=== PATIENT | male | born 1935 | race Caucasian/White ===

== ENCOUNTER 2017-10-26 14:22 | Inpatient (IN) | payer OTHER ==
[2017-10-25 19:40] VITALS: BP 126/62
[~2017-10-26] VITALS: Ht 185.4 cm; Wt 74.8 kg
[2017-10-26 14:44] VITALS: BP 127/57
--- NOTE | 2017-10-26 15:04 | NUR ---
BEDSIDE: FACILTY STAFF AT BEDSIDE. DENIES PAIN OR DISCOMFORT.
[2017-10-26 15:14] LABS: ABG PCO2 25.7 mmHg (35.0-45.0); ABG PH 7.502 (7.350-7.450); BE(B) -1.9 mmol/L (-2.0-2.0); HCO3act 19.7 mmol/L (22.0-26.0); pO2 79.6 mmHg (75.0-100.0)
[2017-10-26 15:15] LABS: BASOPHIL % 0.4 % (0.0-0.2); EOSINOPHIL # 0.1 10^3/uL (0.0-0.2); HEMOGLOBIN 12.6 g/dL (13.9-16.3); LYMPHOCYTES % 13.9 % (24.0-44.0); MEAN CELL HGB 30.1 pg (26-34); MEAN CELL HGB CONCENTRATION 32.3 g/dL (33-37); MEAN CORP VOLUME 93.3 fL (78-100); MEAN PLATELET VOLUME 8.7 fL (7.8-11.0); MONOCYTES # 0.7 10^3/uL (0.3-0.8); MONOCYTES % 10.1 % (5.0-12.0); NEUTROPHILS % 73.3 % (41.0-85.0); RED CELL DISTRIBUTION WIDTH 13.7 % (11.5-14.5); WHITE BLOOD CELL 6.9 10^3/uL (4.5-11.0)
--- NOTE | 2017-10-26 15:26 | DIREP ---
PROCEDURE:CHEST 2 VIEWS COMPARISON:None. INDICATIONS:[facility] FINDINGS: LUNGS/PLEURA:Mild diffuse chronic interstitial fibrotic changes. No other significant pulmonary parenchymal abnormalities. No effusions. VASCULATURE:Normal. Unremarkable pulmonary vasculature. CARDIAC:Normal. No cardiac silhouette abnormality or cardiomegaly. MEDIASTINUM:Normal. No visible mass or adenopathy. BONES:Normal. No fracture or visible bony lesion. OTHER:Negative. CONCLUSION:Mild chronic interstitial fibrosis. No other evidence of active cardiopulmonary disease. Dictated by: Orion Rawls M.D. on 10/26/2017 at 03:25 PM
--- NOTE | 2017-10-26 15:38 | PCM.EKG ---
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
[2017-10-26 16:04] LABS: ALANINE AMINOTRANSFERASE(ML) 14 U/L (12-78); ALKALINE PHOSPHATASE 92 U/L (50-136); ASPARTATE AMINO TRANSFERASE 36 U/L (0-35); CALCIUM 8.7 mg/dL (8.4-10.5); CARBON DIOXIDE 27.8 mmol/L (20.0-32); GLUCOSE 95 mg/dL (70-110)
--- NOTE | 2017-10-26 17:45 | NUR ---
STRAIGHT CATH: UA OBTAINED VIA STRAIGHT CATH, USING STERILE TECHNIQUE WITHOUT DIFFICULTY.
[2017-10-26 17:54] LABS: BILIRUBIN,URINE NEGATIVE (NEGATIVE); UROBILINOGEN,URINE NORMAL (NEGATIVE)
[2017-10-26 17:59] VITALS: BP 129/64
[2017-10-26 18:01] LABS: APPEARANCE,URINE CLEAR (CLEAR); UA COLOR YELLOW (YELLOW)
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
--- NOTE | 2017-10-26 18:30 | NUR ---
DR. PALOMINO: EDP SPOKE WITH DR. PALOMINO CONCERNING ADMIT. DR. PALOMINO AGREED.
[2017-10-26] MEDS ORDERED: PRAV20TA2 PO (18:44)
[2017-10-26] MEDS ORDERED: TAMS0.4C2 PO (18:44)
[2017-10-26] MEDS ORDERED: SOLI5TAB2 PO (18:44)
[2017-10-26] MEDS ORDERED: CHOL2000 PO (18:44)
[2017-10-26] MEDS ORDERED: LEVO125T6 PO (18:44)
[2017-10-26] MEDS ORDERED: ASPI-484 PO (18:44)
[2017-10-26] MEDS ORDERED: CLOP75TA52 PO (18:44)
--- NOTE | 2017-10-26 18:49 | NUR ---
ADMIT: NOTIFIED [facility] OF ADMIT. THEY ARE IN REPORT AND WILL BE DOWN SOON TO GET HIM.
[2017-10-26 19:40] VITALS: BP 126/62
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
--- NOTE | 2017-10-26 19:40 | NUR ---
TRANSPORT: TEST EQUIPMENT MECHANIC HERE TO TRANSPORT PATIENT TO [facility].
--- NOTE | 2017-10-26 20:46 | NUR ---
TELEPHONE CALL FROM DR LAGOS HE ASKED ABOUT HOW THE PATIENT IS DOING AT THE MOMENT. NO NEW ORDERS RECEIVED. PT IS ASLEEP, VISIBLE CHEST MOVEMENT WITH AUDIBLE INSPIRATORY AND EXPIRATORY BREATHING.
[2017-10-26] MEDS: PLAVIX PO SCH (20:52)
[2017-10-26] MEDS ORDERED: PRAVACHOL PO SCH (21:00)
--- NOTE | 2017-10-26 21:29 | NUR ---
TELEPHONE ORDER RECEIVED FROM DR LAGOS RISPERIDONE 05. MG PO HS CELEXA 10 MG DAILY HALDOL 2 MG PO/IM Q6 PRN FOR AGITATION ATIVAN 0.5 PO/IM Q6 PRN FOR AGITATION RBTO
[2017-10-26] MEDS: ATIVAN PO PRN (21:41)
--- NOTE | 2017-10-26 21:45 | NUR ---
medications Patient anxious, pacing, getting up and down from bed, ativan 0.5mg given po per prn orders, RN notified
[2017-10-26] MEDS ORDERED: ATIVAN IM PRN (22:00)
[2017-10-26] MEDS ORDERED: HALDOL IM PRN (22:00)
[2017-10-27] MEDS: HALDOL PO PRN (00:40)
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
[2017-10-27] MEDS: SYNTHROID PO SCH (05:33)
[2017-10-27 09:19] VITALS: BP 156/81
[2017-10-27] MEDS: CELEXA PO SCH (09:37)
[2017-10-27] MEDS: ASPIRIN EC PO SCH (09:37)
[2017-10-27] MEDS: FLOMAX PO SCH (09:38)
[2017-10-27] MEDS: DITROPAN PO SCH ×2 (09:38→20:31)
[2017-10-27] MEDS: VITAMIN D PO SCH (09:40)
--- NOTE | 2017-10-27 10:42 | NUR ---
NOTIFIED DR. LAGOS: Notified Dr. Lagos notified [facility] medications: Xanax 0.25 mg po BID, Buspar 10 mg po TID, and Donepezil 10 mg i po HS. Order received to continue Donepezil 10 mg po HS only.
[2017-10-27] MEDS: ATIVAN PO PRN (11:00)
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
--- NOTE | 2017-10-27 12:09 | NUR ---
F/U: PT. HAS CALMED DOWN. SITTING IN DAY ROOM.
--- NOTE | 2017-10-27 18:20 | NUR ---
PIRP: P: ALTERED THOUGHT PROCESS. DTO I: Provide medications as ordered by physician. Encourage attendance and participation in all groups. Provide groups that require focus and concentration. Assist patient in differentiating between internal and external reality. Monitor patients behavior for changes that may indicate an increased risk of injury to others. R: Patient has taken all medications as ordered and has participated in some groups. Earlier in the shift he was restless getting up and down and wandering and required Ativan PRN. Since then he appears to be more calm and has been able to sit for periods of time. He was seen by Dr. Coyle via telemed and no changes were made. He has not been aggressive this shift. P: Continue current plan of care.
[2017-10-27 19:15] VITALS: BP 120/64
[2017-10-27] MEDS: PLAVIX PO SCH (20:31)
[2017-10-27] MEDS: RISPERDAL PO SCH (20:31)
[2017-10-27] MEDS: ARICEPT PO SCH (20:31)
[2017-10-27] MEDS: ZOCOR PO SCH (20:31)
--- NOTE | 2017-10-28 03:08 | NUR ---
PIRP P- ALTERED THOUGHT PROCESS AND DTO I- PROVIDE SAFE AND SUPPORTIVE ENVIRONMENT,Q 15 MIN. MONITORING,PROVIDE MEDICATION ORDERED. R- PT. WAS ORIENTED TO NAME. DENIES DEPRESSION AND ANXIETY. WAS IN DAY ROOM FOLLOWING SHIFT REPORT. PT. WENT TO BR AND STATED HE WAS GOING TO GO TO BED. HE DID NOT ATTEND GROUP. TOOK MEDICATION ORDERED. IS RESTING IN BED WITH EYES CLOSED AT THIS TIME.DID NOT EXHIBIT DTO THIS SHIFT. P- WILL CONTINUE WITH CURRENT TX. PLAN.
[2017-10-28] MEDS: SYNTHROID PO SCH (05:54)
[2017-10-28] MEDS: DITROPAN PO SCH ×2 (09:43→20:25)
[2017-10-28] MEDS: ASPIRIN EC PO SCH (09:43)
[2017-10-28] MEDS: CELEXA PO SCH (09:43)
[2017-10-28] MEDS: FLOMAX PO SCH (09:43)
[2017-10-28] MEDS: VITAMIN D PO SCH (09:44)
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
[2017-10-28 13:08] VITALS: BP 120/66
--- NOTE | 2017-10-28 13:16 | NUR ---
BIOPSYCHOSOCIAL: SS UNABLE TO COMPLETE EXAM AT THIS TIME. PT VERY RESTLESS AND UNABLE TO COGNITIVELY PARTICIPATE AT THIS TIME. SS WILL REATTEMPT WHEN PT IS MORE ALERT AND ABLE TO PARTICIPATE. Addendum: 10/28/17 at 1321 by Cheyanne VILLARREAL CM Amended: Links added. Addendum: 11/11/17 at 1253 by Cheyanne VILLARREAL CM SS REATTEMPTED TO COMPLETE EVAL BUT PT STILL REMAINS COGNITIVELY UNABLE TO PARTICIPATE
--- NOTE | 2017-10-28 13:17 | NUR ---
GMAS SCORE 0: PT WAS UNABLE TO COGNITIVELY PARTICIPATE AT THIS TIME. SS WAS NOT ABLE TO ASSESS. WILL REATTEMPT ONCE PT IS NOT RESTLESS AND ABLE TO SIT DOWN AND PARTICIPATE IN EXAM. Addendum: 10/28/17 at 1321 by Cheyanne VILLARREAL CM Amended: Links added. Addendum: 11/11/17 at 1253 by Cheyanne VILLARREAL CM SS REATTEMPTED TO COMPLETE EVAL BUT PT STILL REMAINS COGNITIVELY UNABLE TO PARTICIPATE
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
--- NOTE | 2017-10-28 18:07 | NUR ---
PIRP: P: DTO,DEMENTIA WITH BEHAVIORAL DISTURBANCE,ALTERED THOUGHT PROCESS, RISK FOR FALLS I: MONITOR Q 15 MINUTES FOR SAFETY, PROVIDE MEDICATIONS ORDERED, GIVE CLEAR AND SIMPLE INSTRUCTIONS, PROVIDER REALITY ORIENTATION NEEDED,PROVIDE YELLOW NON SKID SOCKS, ENCOURAGE GROUPS, ATTENDANCE AND PARTICIPATION R: Q 15 MINUTE CHECKS HAS BEEN DONE,, PT. HAS TAKEN MEDICATIONS ORDERED BY PHYSICIAN, PT. HAS BEEN ABLE TO FOLLOW CLEAR AND SIMPLE INSTRUCTIONS. PT. IS ORIENTED TO NAME ONLY, PT. IS WEARING YELLOW NON SKID SOCKS. PT. HAS REFUSED TO ATTEND GROUPS TODAY. PT. HAS BEEN CALM AND COOPERATIVE AND HAS NOT SHOWN ANY AGGRESSION. PT. ENCOURAGE TO COME TO DAY ROOM BUT PT. HAS WANTED TO STAY IN ROOM AND SLEEP. P: CONTINUE CURRENT TX PLAN
[2017-10-28 19:45] VITALS: BP 135/64
[2017-10-28] MEDS: ZOCOR PO SCH (20:25)
[2017-10-28] MEDS: ARICEPT PO SCH (20:25)
[2017-10-28] MEDS: RISPERDAL PO SCH (20:25)
[2017-10-28] MEDS: PLAVIX PO SCH (20:25)
--- NOTE | 2017-10-28 20:43 | CNH ---
DATE OF CONSULTATION: CONSULT/HISTORY AND PHYSICAL REFERRING PHYSICIAN: Dr. Coyle. REASON FOR CONSULTATION: Medical management of multiple medical problems. HISTORY OF PRESENT ILLNESS: The patient is an 82-year-old man with a past medical history significant for coronary artery disease, hyperlipidemia, hypertension, dementia, likely vascular dementia, history of arrhythmia in the past, who was admitted to the [facility] unit due to reports of being disoriented, confused, combative and agitated. He is a resident of [facility]. He is alert and cooperative with the exam, but very confused and history is very much limited. He was seen in the Emergency Room and noted to have elevated creatinine of 1.5 with an unknown baseline. Clinically, he was stable. There were no acute medical problems noted. He denied any pain or nausea. He denied any recent falls. PAST MEDICAL HISTORY: Includes coronary artery disease, history of cardiac arrhythmia, hyperlipidemia, hypertension and vascular dementia. He has a history of hypothyroidism and BPH. PAST SURGICAL HISTORY: Unknown. ALLERGIES: ALLERGIC TO NSAIDS REPORTEDLY. HOME MEDICATIONS: List entered into the system after he arrived to the [facility] unit, include aspirin 81 mg daily, vitamin D daily, Plavix 75 mg daily, levothyroxine 125 mcg daily, pravastatin 20 mg daily, VESIcare 5 mg daily and tamsulosin 0.4 mg daily. SOCIAL HISTORY: Lives in a [facility]. No recent alcohol, tobacco or illicit drug use history. FAMILY HISTORY: Negative for early coronary artery disease or diabetes. REVIEW OF SYSTEMS: Limited. CARDIAC: Denies chest pain or shortness of breath. PULMONARY: No cough, sputum production or pleuritic chest pain. GASTROINTESTINAL: No nausea, vomiting, diarrhea or constipation. All else negative in 10 point review of system except as in HPI. PHYSICAL EXAMINATION: VITAL SIGNS: Upon arrival, height 185.4 cm, weight 76.2 kilograms. Temperature 97.6, pulse of 57, respiratory rate 16, blood pressure is 127/57, O2 saturation 96% on room air. GENERAL: He is alert and oriented x 1 at time of exam. No acute distress. HEENT: His pupils are equal, round and reactive. Sclerae are anicteric. Oropharynx, visualized portions clear. Mucous membranes are moist. NECK: Supple, no lymphadenopathy. CARDIOVASCULAR: At time of exam was slightly irregular with rate in the 60s. LUNGS: Clear bilaterally. No wheezing. ABDOMEN: Soft. Bowel sounds are present, nontender to palpation. EXTREMITIES: No cyanosis, clubbing or significant edema. NEUROLOGIC: Grossly nonfocal. INITIAL LABORATORY DATA: CBC: White count 6.9, hemoglobin 12.6 and platelets 291. Differential: 73% neutrophils, 14% lymphocytes, 10% monocytes. Sodium 141, potassium is 4.3, chloride 108, CO2 is 28, BUN 22, creatinine 1.5, glucose is 95, calcium is 8.7, total bilirubin 0.3, AST 36, ALT is 14, alkaline phosphatase 92, total CK 41, CK-MB 0.7, and troponin I is less than 0.02, C-reactive protein 0.27, proBNP 607, total protein 6.1, albumin 2.2, vitamin B12 386, folate of 14, PT of 9.9, PTT 25.1. UA, pH is 6.5, specific gravity is 1.015, all else is negative. Drug screen is only positive for benzodiazepines. ASSESSMENT AND PLAN: The patient is an 82-year-old man here with hypertension, hyperlipidemia, coronary artery disease, hypothyroidism, BPH with some renal failure, likely chronic kidney disease stage 3, anemia due to chronic disease. 1. We will continue his current cardiovascular medications. 2. Encourage oral fluid hydration. 3. Continue his thyroid at current dose. He is clinically euthyroid. Time spent on 10/27/2017 is 45 minutes. Thank you very much for this consult. We will follow with you. Jordon Ascencio MD DR: IRISH/princess JOB# [id number]
[2017-10-29] MEDS: SYNTHROID PO SCH (06:16)
--- NOTE | 2017-10-29 06:26 | NUR ---
PIRP: P: ALTERED THOUGHT PROCESS. DTO I: Provide medications as ordered by physician. Encourage attendance and participation in all groups. Provide groups that require focus and concentration. Assist patient in differentiating between internal and external reality. Monitor patients behavior for changes that may indicate an increased risk of injury to others. R: Patient has taken all medications as ordered. Did not participate in group but came down for snack. He only slept a few hours and said he had slept all day. He has not been aggressive this shift. P: Continue current plan of care.
[2017-10-29] MEDS: ASPIRIN EC PO SCH (09:22)
[2017-10-29] MEDS: CELEXA PO SCH (09:22)
[2017-10-29] MEDS: VITAMIN D PO SCH (09:22)
[2017-10-29] MEDS: PLAVIX PO SCH (09:22)
[2017-10-29] MEDS: FLOMAX PO SCH (09:22)
[2017-10-29] MEDS: DITROPAN PO SCH ×2 (09:23→20:40)
[2017-10-29 10:12] VITALS: BP 103/51
--- NOTE | 2017-10-29 16:59 | NUR ---
PIRP: P: DTO, DEMENTIA WITH BEHAVIORAL DISTURBANCE,RISK FOR FALLS, SLEEP PATTERN DISTURBANCE I: Q 15 MINUTE CHECKS, PROVIDE MEDICATION ORDERED, GIVE CLEAR AND SIMPLE INSTRUCTIONS, PROVIDE REALITY ORIENTATION, PROVIDE NON SKID SOCKS,PROVIDE QUIET ENVIRONMENT R: Q 15 MINUTE CHECKS DONE, PT. TOOK MEDS PRESCRIBED, PT. ABLE TO FOLLOW INSTRUCTIONS, PT. ORIENTED TO NAME ONLY, PT WEARING YELLOW NON SKID SOCKS, PT. SLEPT 3.5 HOURS LAST NIGHT. PT. HAS NOT BEEN AGGRESSIVE. PT HAS BEEN CALM AND COOPERATIVE. PT. WANTS TO STAY IN BED DURING THE DAY. HAVE ATTEMPTED TO KEEP HIM UP. P: CONTINUE CURRENT TX PLAN
[2017-10-29 19:43] VITALS: BP 134/72
[2017-10-29] MEDS: RISPERDAL PO SCH (20:39)
[2017-10-29] MEDS: ZOCOR PO SCH (20:40)
[2017-10-29] MEDS: ARICEPT PO SCH (20:40)
[2017-10-29] MEDS: ATIVAN PO PRN (22:08)
--- NOTE | 2017-10-29 22:18 | NUR ---
Agitation pt is becoming more and more anxious and agitated stated that he is going home tomorrow and cont to comes to desk wanting to get some scissors pt is becoming difficult to redirect, when nurses goes in pt's room pt becomes upset and wants to know why nurses are in his room explain to pt that we are just making rounds pt given Ativan 0.5mg po at this time will cont to monitor pt.s behavior.
--- NOTE | 2017-10-30 05:17 | NUR ---
PIRP- P-ALTERED THOUGHT PROCESS AND DTO I- PROVIDE MEDICATION ORDERED,Q 15 .MIN. MONITORING,PROVIDE SAFE AND SUPPORTIVE ENVIRONMENT. R- PT. WAS ORIENTED TO NAME AND YEAR NOT MONTH. DENIES DEPRESSION AND ANXIETY. DECLINED TO ATTEND GROUP OR EAT A SNACK AND WENT TO BED. TOOK MEDICATION ORDERED. EXHIBITED ANXIETY PREVIOUS NOTE STATES. P-WILL CONTINUE WITH CURRENT TX. PLAN.
[2017-10-30] MEDS: SYNTHROID PO SCH (05:58)
[2017-10-30 07:58] VITALS: BP 134/74
[2017-10-30] MEDS: VITAMIN D PO SCH (11:01)
[2017-10-30] MEDS: DITROPAN PO SCH ×2 (11:01→20:27)
[2017-10-30] MEDS: FLOMAX PO SCH (11:01)
[2017-10-30] MEDS: ASPIRIN EC PO SCH (11:01)
[2017-10-30] MEDS: CELEXA PO SCH (11:01)
[2017-10-30] MEDS: PLAVIX PO SCH (11:01)
--- NOTE | 2017-10-30 17:08 | NUR ---
PIRP: P: ALTERED MENTAL STATUS. DTO I: Provide medications as ordered by physician. Encourage attendance and participation of all groups. Provide groups that require focus and concentration. Assist patient in differentiating between internal and external reality. Monitor patient behaviors for changes that may indicate risk of injury to others. R: Patient has taken all medications as ordered and has participated in groups for short periods of time. He continues to wander and have restless behavior and is a High Fall Risk. He has not hallucinated. He is confused and disoriented but has not been combative. He allowed personal care, shower and did not resist. He has not required any PRN medications. Dr. Coyle saw him today and made medication changes increased Risperidone 0.5 mg po BID. P: Continue current plan of care.and monitor effectiveness of medication changes.
[2017-10-30 19:30] VITALS: BP 148/72
[2017-10-30] MEDS: ARICEPT PO SCH (20:27)
[2017-10-30] MEDS: RISPERDAL PO SCH (20:27)
[2017-10-30] MEDS: ZOCOR PO SCH (20:27)
--- NOTE | 2017-10-31 06:21 | NUR ---
PIRP P- ALTERED THOUGHT PROCESS AND DTO I- PROVIDE MEDICATION ORDERED,Q 15 MIN. MONITORING,PROVIDE SAFE AND SUPPORTIVE ENVIRONMENT.PROVIDE 1;1 INTERVENTION ALLOWING PT. TO EXPRESS THOUGHTS AND FEELINGS. R-PT. ORIENTED TO MONTH AND NAME NOT YEAR. DENIES DEPRESSION AND ANXIETY. ATTENDED GROUP AND PARTICIPATED EXERCISES AND ATE SNACKS. PT. EXHIBITED CONFUSION. TOOK MEDICATION ORDERED. DID NOT EXHIBIT DTO THIS SHIFT. RESTED IN BED WITH EYES CLOSED 5.25 HOURS THIS SHIFT. PT. STATED HE WAS NOT IN THE HOSPITAL AND WAS REMINDED WHERE HE IS. P- WILL CONTINUE WITH CURRENT TX. PLAN.
[2017-10-31] MEDS: SYNTHROID PO SCH (06:26)
[2017-10-31 07:56] VITALS: BP 152/75
[2017-10-31 08:05] VITALS: BP 121/56
[2017-10-31] MEDS: DITROPAN PO SCH ×2 (08:10→20:22)
[2017-10-31] MEDS: CELEXA PO SCH (08:11)
[2017-10-31] MEDS: FLOMAX PO SCH (08:11)
[2017-10-31] MEDS: ASPIRIN EC PO SCH (08:11)
[2017-10-31] MEDS: VITAMIN D PO SCH (08:11)
[2017-10-31] MEDS: RISPERDAL PO SCH ×2 (08:11→20:22)
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
--- NOTE | 2017-10-31 16:38 | NUR ---
PIRP: P: DTO, DEMENTIA WITH BEHAVIORAL DISTURBANCE,RISK FOR FALLS, SLEEP PATTERN DISTURBANCE I: Q 15 MINUTE CHECKS, PROVIDE MEDICATION ORDERED, GIVE CLEAR AND SIMPLE INSTRUCTIONS, PROVIDE REALITY ORIENTATION, PROVIDE NON SKID SOCKS,PROVIDE QUIET ENVIRONMENT R: Q 15 MINUTE CHECKS DONE, PT. TOOK MEDS PRESCRIBED, PT. ABLE TO FOLLOW INSTRUCTIONS, PT. ORIENTED TO NAME ONLY, PT WEARING HIS SHOES WITH NO SKID SOCKS, PT. SLEPT 5.25 HOURS LAST NIGHT. PT. HAS NOT BEEN AGGRESSIVE. PT HAS BEEN CALM AND COOPERATIVE. PT. DID PLAY VIVIANA WITH STAFF AND PEERS TODAY. LAID DOWN FOR ONLY A SHORT TIME TO REST HIS BACK HIS SAID. P: CONTINUE CURRENT TX PLAN
--- NOTE | 2017-10-31 17:02 | NUR ---
FAMILY CONTACT: CHERELLE CALLED SONASUNCION TO INFORM OF THE TREATMENT TEAM MEETING. SON STATES THAT HE HAS TO WORK TOMORROW AND NEXT MONDAY BUT WOULD LIKE FOR US TO CONFERENCE HIS SISTER IN. CHERELLE CONTACTED GARTH AT [phone] WHO INFORMED THIS WORKER SHE WOULD BE HAPPY TO GET A CALL TO BE INVOLVED IN TX TEAM. CHERELLE INFORMED DAUGHTER SHE WOULD RECEIVE A CALL BETWEEN [phone]. Addendum: 10/31/17 at 1730 by LUCHO Tolentino PLEASE NOTE, DAUGHTER NOELLE IS [facility], PRIMARY CONTACT FOR THIS PT. [phone].
--- NOTE | 2017-10-31 17:27 | NUR ---
BIOPSYCHOSOCIAL: COMPLETED WITH THE HELP OF HIS DAUGHTER. Addendum: 10/31/17 at 1728 by LUCHO Tolentino Amended: Links added. Addendum: 10/31/17 at 1730 by LUCHO Tolentino DAUGHTER GARTH IS [facility], PRIMARY CONTACT
[2017-10-31 19:39] VITALS: BP 127/59
[2017-10-31] MEDS: ARICEPT PO SCH (20:22)
[2017-10-31] MEDS: PLAVIX PO SCH (20:22)
[2017-10-31] MEDS: ZOCOR PO SCH (20:22)
--- NOTE | 2017-11-01 05:04 | NUR ---
PIRP P- ALTERED THOUGHT PROCESS AND DTO I- PROVIDE MEDICATION ORDERED,Q 15 MIN. MONITORING, PROVIDE 1:1 INTERVENTION ALLOWING PT. TO EXPRESS THOUGHTS AND FEELINGS. R- ORIENTED TO NAME NOT MONTH OR YEAR. DENIES DEPRESSION AND ANXIETY. ATTENDED GROUP AND PARTICIPATED IN GROUP ACTIVITY. ATE SNACKS. PLEASANT AFFECT . DID NOT EXHIBIT DTO. TOOK MEDICATION ORDERED. HAS RESTED IN BED WITH EYES CLOSED FOR 5 HOURS OF THIS TIME. P- WILL CONTINUE WITH CURRENT TX. PLAN.
[2017-11-01] MEDS: SYNTHROID PO SCH (06:27)
[2017-11-01 07:28] VITALS: BP 122/65
[2017-11-01] MEDS: RISPERDAL PO SCH ×2 (08:54→20:33)
[2017-11-01] MEDS: ASPIRIN EC PO SCH (08:54)
[2017-11-01] MEDS: FLOMAX PO SCH (08:54)
[2017-11-01] MEDS: DITROPAN PO SCH ×2 (08:54→20:33)
[2017-11-01] MEDS: CELEXA PO SCH (08:54)
[2017-11-01] MEDS: VITAMIN D PO SCH (08:54)
--- NOTE | 2017-11-01 09:25 | NUR ---
Tx team Pt was seen by Dr. Coyle and tx team, no new orders received @ this time.
--- NOTE | 2017-11-01 17:18 | NUR ---
PIRP P: Confusion, withdrawn, irritable I: Q15 min monitoring, provide safe and supportive environment, give clear and simple instructions, redirect with verbalization, assess for psychotic symptoms, monitor changes in usual behavior, give medications as ordered, teach relaxation techniques, re-orient to surroundings as needed, provide task-oriented activities, encourage participation in own self-care R: Pt has had withdrawn, but pleasant affect majority of shift, irritable @ times. Participates in some group activities with prompting, is withdrawn majority of time. Interacts appropriately with staff when approached. Alert and oriented to self. Denies depression, anxiety, SI/HI. No combative or threatening behaviors exhibited @ this time, no psychotic symptoms observed. Takes medications as ordered, will perform ADLs with minimal assist and prompting. P: Pt unable to voice plan, no new orders received @ this time.
[2017-11-01 19:20] VITALS: BP 106/46
[2017-11-01] MEDS: PLAVIX PO SCH (20:33)
[2017-11-01] MEDS: ARICEPT PO SCH (20:33)
[2017-11-01] MEDS: ZOCOR PO SCH (20:33)
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
--- NOTE | 2017-11-02 04:26 | NUR ---
MANAS P DTO. Dementia with behaviors. Altered thought process. Sleep pattern disturbance. I Patient to remain med compliant. Stress ways to cope with anger and stress. Allow patient to verbalize thoughts and feelings. Monitor every 15 min. Patient to sleep for 7-8 hours. Encourage group participation. R Patient has maintained med compliance. Patient has not displayed any anger or stress. Patient verbalized hunger when he approached the nurse desk and asked for a snack. Patient has been monitored every 15 min and has slept 4 hours. Patient refused to attend group. P Continue plan of care.
[2017-11-02 07:30] VITALS: BP 158/82
[2017-11-02] MEDS: SYNTHROID PO SCH (08:12)
[2017-11-02] MEDS: CELEXA PO SCH (09:09)
[2017-11-02] MEDS: DITROPAN PO SCH ×2 (09:09→20:23)
[2017-11-02] MEDS: FLOMAX PO SCH (09:09)
[2017-11-02] MEDS: ASPIRIN EC PO SCH (09:10)
[2017-11-02] MEDS: VITAMIN D PO SCH (09:10)
[2017-11-02] MEDS: RISPERDAL PO SCH ×2 (09:13→20:23)
--- NOTE | 2017-11-02 17:48 | NUR ---
PIRP P WITHDRAWN, ISOLATES, IRRITABLE, CONFUSED I PROVIDE A SAFE AND SUPPORTIVE ENVIRONMENT, Q15 MINUTE MONITORING, ADMINISTER MEDICATIONS ORDERED, PROVIDE INTERACTIVE GROUP ACTIVITIES, VERBAL REDIRECTION, ENCOURAGE PARTICIPATION IN OWN SELF CARE, REORIENT TO SURROUNDINGS NEEDED, TEACH IMPORTANCE IN ALTERATION IN REST AND ACTIVITY, ENCOURAGE PO FOOD AND FLUID INTAKE R PT HAS ISOLATED TO ROOM MAJORITY OF SHIFT, IRRITABLE AT TIMES, HAS PARTICIPATED IN SOME GROUP ACTIVITIES WITH PROMPTING, TAKES MEDICATIONS ORDERED, HAS NOT EXHIBITED THREATENING OR COMBATIVE BEHAVIORS, MAINTAINS APPROPRIATE BOUNDARIES WITH STAFF AND PEERS, REFUSED TO HAVE BREAKFAST AND MORNING SNACK, BUT DID HAVE LUNCH AND EVENING SNACK, COOPERATIVE WITH ADL'S P PT DOES NOT VOICE PLAN
[2017-11-02 19:50] VITALS: BP 119/61
[2017-11-02] MEDS: ZOCOR PO SCH (20:23)
[2017-11-02] MEDS: ARICEPT PO SCH (20:23)
[2017-11-02] MEDS: PLAVIX PO SCH (20:28)
--- NOTE | 2017-11-03 04:56 | NUR ---
PIRP P-WITHDRAWN, CONFUSED I-GIVE MEDICATIONS PRESCRIBED, ENCOURAGE GROUP PARTICIPATION. PROVIDE SUPPORTIVE ENVIRONMENT. RE-ORIENT WHEN NECESSARY. Q 15 MIN MONITORING. R-PT ATTEMPTED SEVERAL TIMES TO GO TO ROOM AT BEGINNING OF SHIFT. ENCOURAGED TO COME OUT OF ROOM TO DAY ROOM FOR SNACK AND PARTICIPATION IN GROUP. PT REFUSED GROUP, AND WAS CONFUSED, TAPPED ON NURSES STATING PLEXI GLASS SEVERAL TIMES ASKING WHAT HE IS SUPPOSED TO BE DOING, EVEN AFTER RE-DIRECTION. PT GOT UP SEVERAL TIMES DURING THE NIGHT TO WANDER OUT INTO THE [place]. PT TALKING IN SENTENCES THAT DID NOT MAKE SENSE. P-CONTINUE WITH PLAN OF CARE.
[2017-11-03] MEDS: SYNTHROID PO SCH (05:58)
[2017-11-03 07:16] VITALS: BP 155/71
[2017-11-03] MEDS: PLAVIX PO SCH (09:03)
[2017-11-03] MEDS: DITROPAN PO SCH ×2 (09:03→20:30)
[2017-11-03] MEDS: CELEXA PO SCH (09:03)
[2017-11-03] MEDS: RISPERDAL PO SCH ×2 (09:03→20:30)
[2017-11-03] MEDS: VITAMIN D PO SCH (09:03)
[2017-11-03] MEDS: ASPIRIN EC PO SCH (09:03)
[2017-11-03] MEDS: FLOMAX PO SCH (09:03)
[2017-11-03] MEDS: HALDOL PO PRN (12:24)
--- NOTE | 2017-11-03 12:24 | NUR ---
BEHAVIOR NOTE: Patient was wandering hallway delusional behavior stating "I'm late for work". Patient was unable to be redirected and continued to try and get in to the nurse's station stating "They called me and I have to be there by %". Addendum: 11/03/17 at 1326 by EB Uriostegui RN by 5. Haldol 2 mg po PRN given for mentioned behaviors.
--- NOTE | 2017-11-03 13:46 | NUR ---
PIRP: P: ALTERED MENTAL STATUS I: Provide medications as ordered by physiciian. Encourage attendance and participation of all groups. Provide groups that require focus and concentration. Assist patient in differentiating between internal and external reality. R: Patient has taken all medications as ordered and has remained most ofthe day in his room. He has required PRN medication for delusions stating "I need to go to work". wandering hallway and unable to redirect. He has not been combative or aggressive. P: Continue current plan of care.
--- NOTE | 2017-11-03 14:03 | NUR ---
reassessment of behavior pt lying in bed refuses to come to day room and participate in group activities. no distress noted
[2017-11-03 19:50] VITALS: BP 113/61
[2017-11-03] MEDS: ZOCOR PO SCH (20:30)
[2017-11-03] MEDS: ARICEPT PO SCH (20:30)
--- NOTE | 2017-11-04 05:30 | NUR ---
PIRP P-DEMENTIA WITH BEHAVIORS, ALTERED THOUGHT PROCESS, SLEEP PATTERN DISTURBANCE I- Q15 MINUTE MONITORING, ADMINISTER MEDICATIONS ORDERED, RE- DIRECT AND RE-ORIENT NEEDED, PROVIDE SAFE AND SUPPORTIVE ENVIRONMENT, ENCOURAGE ADEQUATE SLEEP AND PARTICIPATION IN GROUP ACTIVITIES. R-PT DENIED ANY PAIN, FEELING OF ANXIETY OR DEPRESSION. PT IS UNWILLING TO PARTICIPATE IN GROUPS AND IS CONFUSED ABOUT WHERE HE IS. PT CONTINUES TO ASK MED THE SAME QUESTION ASKED OF HIM INSTEAD OF RESPONDING APPROPRIATELY. PT TOOK ALL MED ADMINISTERED. PT LEFT DAY ROOM TO GO TO BED EARLY AFTER ASKING ABOUT AVAILABLE SNACKS AND THEN DECLINING WHEN OFFERED. PT ATTEMPTED TO GET UP AROUND 4AM AND WAS INFORMED IT IS STILL TOO EARLY TO GET UP. PT WENT BACK TO BED. P-CONTINUE WITH PLAN OF CARE.
[2017-11-04] MEDS: SYNTHROID PO SCH (05:50)
[2017-11-04 07:25] VITALS: BP 146/75
[2017-11-04] MEDS: CELEXA PO SCH (08:07)
[2017-11-04] MEDS: FLOMAX PO SCH (08:07)
[2017-11-04] MEDS: ASPIRIN EC PO SCH (08:07)
[2017-11-04] MEDS: RISPERDAL PO SCH ×2 (08:07→20:20)
[2017-11-04] MEDS: DITROPAN PO SCH ×2 (08:07→20:21)
[2017-11-04] MEDS: VITAMIN D PO SCH (08:08)
--- NOTE | 2017-11-04 09:31 | NUR ---
BEHAVIOR NOTE: Patient became agitated yelling out "The floor is not wet!". towards staff when they were asking him to remain seated while housekeeping was mopping the floor. He disregarded what he had been asked and got up with unsteady gait walking across floor and then down to his room and got in to bed.
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
--- NOTE | 2017-11-04 16:15 | NUR ---
PIRP: P: ALTERED THOUGHT PROCESS. DTO I: Provide medications as ordered by physician. Encourage attendance and participation of all groups and provide groups that require focus and concentration. Assist patient in differentiating between internal and external reality. Monitor patient changes in usual behavior that may indicate risk of injury to others. R: Patient has taken all medications as ordered and has not participated in any socializing. He has remained in his room most of day and rested but has been encouraged on multiple times to come and sit and socialize in day room. He is easily agitated and remains confused and disoriented. P: Continue current plan of care.
[2017-11-04 19:36] VITALS: BP 118/68
[2017-11-04] MEDS: PLAVIX PO SCH (20:20)
[2017-11-04] MEDS: ARICEPT PO SCH (20:20)
[2017-11-04] MEDS: ZOCOR PO SCH (20:21)
--- NOTE | 2017-11-05 05:41 | NUR ---
PIRP P Danger to others, Dementia with behaviors, Altered thought process, risk for falls, Sleep pattern disturbance I Medication compliance to be continued, Monitor for threatening behavior and stop it, Monitor patient for safety every 15 minutes, Observe for unusual behavior and de escalate threatening behavior. Encourage patient to get good nights sleep, Encourage patient to verbalize thoughts and feelings. Monitor patient for his personal safety due to unsteady gait. Encourage non slip shoes. Medications per Drs orders. R Patient has been medication compliant. Patient has not displayed any threatening behavior. Frequent checks on patient as he gets up frequently at night to go to bathroom and also to walk to nurses desk. Patient has not displayed any threatening behavior. Nurses have walked patient back to his room from desk and to day room as patient wanted container of juice. Patient encouraged to talk .Non slip shoes worn when up in hallway. Medications have been given as per Drs orders. P Continue plan of care.
[2017-11-05] MEDS: SYNTHROID PO SCH (05:48)
[2017-11-05] MEDS: VITAMIN D PO SCH (07:40)
[2017-11-05] MEDS: CELEXA PO SCH (07:40)
[2017-11-05] MEDS: HALDOL PO PRN (07:40)
[2017-11-05] MEDS: ASPIRIN EC PO SCH (07:40)
[2017-11-05] MEDS: DITROPAN PO SCH ×2 (07:40→20:33)
[2017-11-05] MEDS: RISPERDAL PO SCH ×2 (07:40→20:34)
[2017-11-05] MEDS: FLOMAX PO SCH (07:40)
[2017-11-05] MEDS: PLAVIX PO SCH (07:40)
--- NOTE | 2017-11-05 09:15 | NUR ---
BEHAVIOR NOTE: Patient yelling at staff " I want to know where the bankers breakfast is!" Refusing breakfast and delusional/agitation. Unable to redirect or assist patient d/t aggressive/agitated behavior. Haldol 2 mg po given for behaviors.
[2017-11-05 09:47] VITALS: BP 131/62
--- NOTE | 2017-11-05 10:17 | PRM.PN ---
Mood: UP AND DOWN, EXIT SEEKING BEHAVIOR Sleep: SLEEPING OK AT NIGHT, NORMALLY SLEEPS WELL AT NIGHT Appetite: NORMAL APPETITE Suidical thoughts: NONE REPORTED Homicidal thoughts: NONE REPORTED Recent stressors: STRESS OF MENTAL ILLNESS Family support: DAUGHTER AND SON Aggressive Behavior: SOME AGGRESSIVE BEHAVIOR, REQUIRED PRN MEDICATION THIS AM Ability to Perform ADL'sc: NEEDS ASSISTANCE, NEEDS PROMPTING Psychotic sympstoms: DELUSIONAL, PARANOID, ODD THINKING Manic Symptoms: NONE REPORTED Living situation: LIVES AT [facility] Illicit Drug usec: NONE REPORTED Alcoholo use: NONE REPORTED Tobacco use: NONE REPORTED Anxity Symptoms: MODERATE ANXIETY LEVEL Anger/Irritablility: PROBLEMS WITH ANGER AND IRRITABILITY Muscle Strength & Tone: WNL Gait & Station: Ataxic Appearance: Well groomed/hygience, Casual attire, Normal weight, Appears age stated Attitude & Behaviour: Uncooperative, Poor eye contact, Psychomotor agitation Mood & Affect: Euthymic/appr/congruent, Iabile, Angry, Depressed Orientation: Disoriented to place, Disoriented to time, Disoriented to situation Attention/Concentration: Poor attention, Poor concentration Speech: Reg rate/vol/rhyth/prosod Judgement/Insight: Poor judgement, Poor insight Thought Process: Linear/goal directed, Loose, Tangential Language: Moldovan Thought content/Abnormal/Psych: Delusions Fund of Knowledge: Other Associations: WILMER Memory (recent and remote): Recent memory repaired, Remote memory repaired Constitutional: Insomnia Neurological: None Psychiatric: Depressed, Anxious, Psychosis [place] I: DELUSIONAL DISORDER, DEMENTIA WITH BEHAVIOR PROBLEMS, DEPRESSION, ANXIETY [place] II: DEFERRED [place] III: REFER TO PMH/MEDICAL CHART [place] IV: STRESS OF MENTAL ILLNESS [place] V: GAF=25 Assessment/Plan Assessment/Plan Assessment/Plan THE PATIENT WAS SEEN VIA TELEMEDICINE EQUIPMENT (VSEE) ALONG WITH THE TREATMENT TEAM. THE PATIENT'S VITAL SIGNS WERE: WO=377/62, PULSE=59, RESP.=16, TEMP.=98.5 , O2 SAT WAS 95% ON RA. THE PATIENT SLEPT 4.5 HOURS LAST NIGHT. THE PATIENT SLEPT 7 HOURS THE NIGHT BEFORE. THE PATIENT NORMALLY SLEEPS WELL PER STAFF. THE PATIENT NEVER EATS BREAKFAST. THE PATIENT EATS 50-70% OF OTHER MEALS. THE PATIENT HAS BEEN IRRITABLE PER STAFF. THE PATIENT REQUIRED PRN HALDOL ON MONDAY. THE PATIENT HAS SHOWN SONE AGGRESSIVE BEHAVIOR TOWARDS STAFF. THE PATIENT IS CONFUSED. THE PATIENT HAS ODD AND DELUSIONAL THINKING. THE PATIENT REQUIRED HALDOL 2MG PO PRN THIS MORNING. THE PATIENT HAS EXIT SEEKING BEHAVIOR. THE PATIENT WANTED TO GO TO THE "BANKER[employer] BREAKFAST." THE PATIENT IS DISORIENTED TO PLACE, TIME, AND SITUATION. THE PATIENT TAKES HIS MEDICATIONS. THE PATIENT CAME FROM [place]. ASSESSMENT: DELUSIONAL DISORDER, PSYCHOSIS, MAJOR DEPRESSIVE DISORDER, GENERALIZED ANXIETY DISORDER, DEMENTIA WITH BEHAVIOR PROBLEMS PLAN: 1) CONTINUE BEHAVIORAL HEALTH MANAGEMENT. 2) INCREASE RISPERDAL TO 0.75MG PO BID. CONTINUE OTHER MEDICATIONS AT CURRENT DOSES. SUPPORTIVE THERAPY GIVEN. THE PATIENT DENIES SI OR HI. SAFETY PLANS WERE DISCUSSED. Problems: (1) Dementia with aggressive behavior Status: Acute ICD Code: F03.91 - Unspecified dementia with behavioral disturbance SNOMED: [id number], [id number] PUJA LORENZO IV, MD November 05, 2017 10:17
--- NOTE | 2017-11-05 16:04 | NUR ---
PIRP: P: ALTERED MENTAL STATUS. I: Provide medications as ordered bt physician. Encourage attendance and participation of all groups. Assist patient in differentiating between internal and external reality. R: Patient has taken all medications but continues to retreat back to his room to sleep. He remains confused and disoriented. He has been up for meals and a few hours today. P: Continue current plan of care.
[2017-11-05 19:33] VITALS: BP 135/74
[2017-11-05] MEDS: ARICEPT PO SCH (20:32)
[2017-11-05] MEDS: ZOCOR PO SCH (20:34)
--- NOTE | 2017-11-06 04:29 | NUR ---
PIRP P Danger to Others, Dementia with behaviors, Altered thought process, Risk for falls, Sleep pattern disturbance I Monitor for medication compliance, Observe for aggressive behaviors and attempt to decrease them if occurs. Observe patient every 15 minutes and more often if needed to maintain safety as patient is sometimes unsteady standing and walking. Encourage patient to verbalize thoughts and feelings. Encourage patient to get 7 hours of sleep nightly. Encourage patient to participate in groups as much as possible. Reorient patient as needed. Maintain patent safety with non skid shoes. R Patient has been medication compliant. Patient has not displayed any aggressive behaviors and has allowed nurses to help him walk to his room from day room. Patient told RN that she asked too many questions during assessment . Patient did answer a few questions during group and stayed up to watch tv for a few minutes. Patient has been observed every 15 minutes. Patient has slept with exception of getting up to bathroom. Patient has also had the hiccups. Patient was instructed on day and place. He feels that [place] is spelt wrong as he sees it on the signboard. Patient has been compliant with wearing non skid shoes. P Continue plan of care.
[2017-11-06] MEDS: SYNTHROID PO SCH (06:15)
[2017-11-06 08:01] VITALS: BP 115/63
[2017-11-06] MEDS: RISPERDAL PO SCH ×2 (09:06→20:26)
[2017-11-06] MEDS: DITROPAN PO SCH ×2 (09:06→20:26)
[2017-11-06] MEDS: VITAMIN D PO SCH (09:06)
[2017-11-06] MEDS: CELEXA PO SCH (09:06)
[2017-11-06] MEDS: ASPIRIN EC PO SCH (09:06)
[2017-11-06] MEDS: FLOMAX PO SCH (09:06)
--- NOTE | 2017-11-06 18:08 | NUR ---
PIRP P: Confusion, withdrawn, irritable I: q15 min monitoring, monitor for changes in usual behavior, assess reasons for irritability, give clear and simple instructions, redirect with verbalization, teach relaxation techniques, teach adequate food and fluid intake, teach importance of alternating rest/activity, teach appropriate behaviors and provide positive reinforcement, provide 1:1 to encourage expression of feelings, assess for hallucinations and delusions, give medications as ordered R: Pt has had withdrawn affect majority of shift, irritable @ times. Isolates to room, refused lunch and dinner. When approached by staff to come out to day room for dinner, pt became agitated and yelled out, "get out of here," and threw hand up in air. Staff left room per pt wishes, pt later came out of room and waved @ this RN and walked back into room. Alert and oriented to self, denies depression and anxiety, states, "I'm happy." No hallucinations or delusions noted. P: Pt unable to voice plan, has taken medications as ordered, reinforce group participation.
[2017-11-06 19:30] VITALS: BP 132/63
[2017-11-06] MEDS: PLAVIX PO SCH (20:26)
[2017-11-06] MEDS: ZOCOR PO SCH (20:26)
[2017-11-06] MEDS: ARICEPT PO SCH (20:27)
--- NOTE | 2017-11-07 05:11 | NUR ---
PIRP- P- ALTERED THOUGHT PROCESS AND DTO I- PROVIDE 1:1 INTERVENTION ALLOWING PT. TO EXPRESS THOUGHTS AND FEELINGS,PROVIDE MEDICATION ORDERED,Q 15 MIN. MONITORING. R- PT. WAS ORIENTED TO NAME NOT MONTH OR YEAR. DENIES DEPRESSION AND ANXIETY. DID NOT EXHIBIT DTO TONIGHT. TOOK MEDICATION ORDERED. ATTENDED GROUP AND PARTICIPATED IN ACTIVITY. ATE SNACKS. PT. RESTED IN BED AND AT TIMES HAD THE HICCUPS.EXHIBITED MEMORY LOSS AT TIMES. P- WILL CONTINUE WITH CURRENT TX. PLAN.
[2017-11-07] MEDS: SYNTHROID PO SCH (06:00)
[2017-11-07 07:38] VITALS: BP 114/58
[2017-11-07] MEDS: FLOMAX PO SCH (09:14)
[2017-11-07] MEDS: ASPIRIN EC PO SCH (09:14)
[2017-11-07] MEDS: DITROPAN PO SCH ×2 (09:15→20:23)
[2017-11-07] MEDS: RISPERDAL PO SCH ×2 (09:15→20:23)
[2017-11-07] MEDS: VITAMIN D PO SCH (09:15)
[2017-11-07] MEDS: CELEXA PO SCH (09:15)
[2017-11-07] MEDS: HALDOL PO PRN (13:48)
--- NOTE | 2017-11-07 17:09 | NUR ---
PIRP P: Confusion, withdrawn I: q15 min monitoring, monitor for changes in usual behavior, provide task-oriented activities, give clear and simple instructions, alternate rest/activity, redirect with verbalization, provide 1:1 to encourage expression of feelings, assess for psychotic symptoms, re-orient to surroundings as needed, give medications as ordered R: Pt has had pleasant, but withdrawn affect throughout shift. Reports his energy levels are "good" and that his mood is "good." Initiates interaction with staff and responds appropriately to approach. States that @ nursing facility, he gets up for breakfast, has a light breakfast, drinks coffee, "and that's about it." Does participate in some group activities with prompting, takes medications as ordered. No combative or threatening behaviors exhibited this shift. P: Pt reports that he will "try to stay up longer."
[2017-11-07 19:45] VITALS: BP 108/60
[2017-11-07] MEDS: ARICEPT PO SCH (20:23)
[2017-11-07] MEDS: PLAVIX PO SCH (20:23)
[2017-11-07] MEDS: ATIVAN PO PRN (20:23)
[2017-11-07] MEDS: ZOCOR PO SCH (20:23)
--- NOTE | 2017-11-07 20:30 | NUR ---
medications Patient anxious, pacing in and out of room, stating he is scared of everthing, RN notified this nurse to give prn ativan with hs meds, 0.5mg ativan given this hs per prn orders
--- NOTE | 2017-11-08 04:38 | NUR ---
pirp- P- ALTERED THOUGHT PROCESS AND DTO I- PROVIDE SAFE SUPPORTIVE ENVIRONMNET,Q 15 MIN. MONITORING,PROVIDE MEDICATION ORDERED. PROVIDE 1:1 INTERACTION ALLOWING PT. TO EXPRESS THOUGHTS AND FEELINGS R- PT. WAS ORIENTED TO NAME NOT MONTH OR YEAR. DENIES DEPRESSION AND ANXIETY BUT STATES,"I AM AFRAID OF ALL OF YOU." ENCOURAGED PT. NOT TO BE AFRAID THAT WE ARE HERE TO HELP HIM. AT FIRST PT. WOULD NOT LET DEVELOPER DESIGNER DO HIS VS THEN DID . LET HER. CAME TO DAY ROOM AND ATE SNACKS THEN WANDERED IN HIS ROOM. PT. HAS HAD HICCUPS WHEN HE WENT TO BED. TOOK MEDICATION ORDERED. HAS NOT EXHIBITED DTO. TONIGHT. P- WILL CONTINUE WITH CURRENT TX. PLAN.
[2017-11-08] MEDS: SYNTHROID PO SCH (06:23)
[2017-11-08] MEDS: DITROPAN PO SCH ×2 (07:51→20:12)
[2017-11-08] MEDS: RISPERDAL PO SCH ×2 (07:51→20:12)
[2017-11-08] MEDS: VITAMIN D PO SCH (07:51)
[2017-11-08] MEDS: CELEXA PO SCH (07:51)
[2017-11-08] MEDS: ASPIRIN EC PO SCH (07:51)
[2017-11-08] MEDS: FLOMAX PO SCH (07:51)
[2017-11-08 08:25] VITALS: BP 149/77
--- NOTE | 2017-11-08 09:42 | PRM.PN ---
Mood: UP AND DOWN, DENIED FEELING DEPRESSED TODAY Sleep: SLEEPING AROUND 4 HOURS PER NIGHT, NAPS DURING THE DAY Appetite: NORMAL APPETITE Suidical thoughts: NONE REPORTED Homicidal thoughts: NONE REPORTED Recent stressors: STRESS OF MENTAL ILLNESS Family support: LIMITED Aggressive Behavior: SOME AGITATION, SOME VERBAL AGGRESSION Ability to Perform ADL'sc: NEEDS ASSISTANCE Psychotic sympstoms: DELUSIONAL THINKING, PARANOIA, NO HALLUCINATIONS Manic Symptoms: NONE REPORTED Living situation: LIVES AT NURSING FACILITY IN [place], [place] Illicit Drug usec: NONE REPORTED Alcoholo use: NONE REPORTED Tobacco use: NONE REPORTED Anxity Symptoms: MODERATE ANXIETY LEVEL Anger/Irritablility: SOME ANGER AND IRRITABILITY Muscle Strength & Tone: WNL Gait & Station: Ataxic Appearance: Well groomed/hygience, Casual attire, Normal weight, Appears age stated Attitude & Behaviour: Uncooperative, Poor eye contact, Psychomotor agitation Mood & Affect: Euthymic/appr/congruent Orientation: Disoriented to place, Disoriented to time, Disoriented to situation Attention/Concentration: Poor attention, Poor concentration Speech: Impaired Judgement/Insight: Poor judgement, Poor insight Thought Process: Loose, Tangential Language: Urdu Thought content/Abnormal/Psych: Delusions Fund of Knowledge: Other Associations: [place] Memory (recent and remote): Recent memory repaired, Remote memory repaired Constitutional: Insomnia Neurological: None Psychiatric: Depressed, Anxious, Psychosis [place] I: DELUSIONAL DISORDER, DEMENTIA, DEPRESSION, ANXIETY, PSYCHOSIS [place] II: DEFERRED [place] III: REFER TO PMH/MEDICAL CHART [place] IV: STRESS OF MENTAL ILLNESS [place] V: GAF=25 Assessment/Plan Assessment/Plan Assessment/Plan THE PATIENT WAS SEEN BY DR. LORENZO VIA TELEMEDICINE EQUIPMENT (VSEE) ALONG WITH THE TREATMENT TEAM. THE PATIENT'S VITAL SIGNS WERE: TEMP.97.9, PULSE=73, RESP.= 18, AH=238/60, O2 SAT WAS 95% ON RA. THE PATIENT IS SLEEPING 4 HOURS PER NIGHT. THE PATIENT HAS A NORMAL APPETITE. HE EATS 70% OR MORE OF HIS MEALS. THE PATIENT HAS BEEN TAKING HIS MEDICATIONS. THE PATIENT RECEIVED A PRN ATIVAN LAST NIGHT FOR ANXIETY. THE PATIENT CONTINUES TO BE VERY CONFUSED. HE IS NOT ABLE TO ANSWER QUESTIONS VERY WELL. THE PATIENT WAS LIVING AT A NURSING LIVING FACILITY IN [place], [place]. THE PATIENT REPORTS HIS MOOD IS "HAPPY" TODAY. THE PATIENT ALLOWED STAFF TO HELP HIM SHOWER THIS MORNING. THE PATIENT HAS DELUSIONAL THINKING RELATED TO HIS DEMENTIA. THE PATIENT HAS PARANOIA. THE PATIENT IS NOT OVER-SEDATED FROM HIS MEDICATIONS. THE PATIENT HAS YELLED AT STAFF IN THE PAST. THE PATIENT CAN GET FIXATED ON CERTAIN THINGS. ASSESSMENT: DELUSIONAL DISORDER; GENERALIZED ANXIETY DISORDER; MAJOR DEPRESSIVE DISORDER; DEMENTIA WITH BEHAVIOR PROBLEMS PLAN: 1) CONTINUE BEHAVIORAL HEALTH UNIT MANAGEMENT. 2) INCREASE RISPERDAL TO 1MG PO BID. CONTINUE OTHER CURRENT MEDICATIONS. STAFF AGREEABLE WITH THE PLAN. SUPPORTIVE THERAPY GIVEN. THE PATIENT DENIES SI OR HI. SAFETY PLANS WERE DISCUSSED. 16 MINUTES SPENT IN SUPPORTIVE THERAPY AND MEDICATION EDUCATION. NO FAMILY CAME TO TREATMENT TEAM. Problems: (1) Dementia with aggressive behavior Status: Acute ICD Code: F03.91 - Unspecified dementia with behavioral disturbance SNOMED: 82501568, [id number], [id number] PUJA LORENZO IV, MD November 08, 2017 09:42
--- NOTE | 2017-11-08 16:12 | NUR ---
PIRP: P: altered thought process, dto I: Provide medications as ordered by physician. Encourage attendance and participation of all groups. Provide groups that require focus and concentration. Assist patient in differentiating between internal and external reality. R: Patient has taken all medications and has participated in a few groups. He remains confused and disoriented. At times he is restless and agitated. He has not required any PRN's this shift. P: Continue current plan of care.
[2017-11-08 19:28] VITALS: BP 136/67
[2017-11-08] MEDS: ARICEPT PO SCH (20:11)
[2017-11-08] MEDS: ZOCOR PO SCH (20:12)
[2017-11-08] MEDS: PLAVIX PO SCH (20:12)
--- NOTE | 2017-11-09 04:39 | NUR ---
PIRP P-ALTERED THOUGHT PROCESS, WITHDRAWN I-ENCOURAGE GROUP PARTICIPATION, Q 15 MIN MONITORING. GIVE MEDICATION PRESCRIBED. PROVIDE SUPPORTIVE ENVIRONMENT AND ENCOURAGEMENT WHEN PATIENT INITIATES INTERACTION. R-PATIENT REFUSED GROUP PARTICIPATION, STATING HE DID NOT KNOW HOW TO PLAY THE GAME AND DID NOT THINK HE COULD LEARN IT. PATIENT WOKE UP SEVERAL TIMES DURING THE NIGHT, COMING TO THE NURSES STATION AND TAPPING ON THE GLASS ASKING FOR COFFEE. AFTER INFORMING PATIENT THAT IT WAS NOT MORNING, AND COFFEE WAS NOT AVAILABLE AT THE TIME, PATIENT BECAME PERSISTENT. IT TOOK SEVERAL TIMES OF RE-DIRECTING AND ENCOURAGING TO GO BACK TO BED. JUICE WAS GIVEN AN ALTERNATIVE TO COFFEE. P-CONTINUE WITH PLAN OF CARE.
[2017-11-09] MEDS: SYNTHROID PO SCH (05:54)
[2017-11-09 07:49] VITALS: BP 143/62
[2017-11-09] MEDS: CELEXA PO SCH (08:12)
[2017-11-09] MEDS: VITAMIN D PO SCH (08:12)
[2017-11-09] MEDS: RISPERDAL PO SCH ×2 (08:12→20:31)
[2017-11-09] MEDS: DITROPAN PO SCH ×2 (08:12→20:31)
[2017-11-09] MEDS: ASPIRIN EC PO SCH (08:12)
[2017-11-09] MEDS: FLOMAX PO SCH (08:13)
--- NOTE | 2017-11-09 08:39 | PRM.PN ---
Mood: UP AND DOWN, HE HAS A HARD TIME DESCRIBING HIS MOOD Sleep: SLEEPING WELL AT NIGHT Appetite: UP AND DOWN, DRINKING BOOST SHAKES, HAS HICCUPS Suidical thoughts: NONE REPORTED Homicidal thoughts: NONE REPORTED Recent stressors: STRESS OF MENTAL ILLNESS Family support: LIMITED Aggressive Behavior: SOME AGGRESSIVE BEHAVIOR, SOME EXIT SEEKING BEHAVIOR Ability to Perform ADL'sc: NEEDS ASSISTANCE Psychotic sympstoms: DELUSIONAL THINKING, NO HALLUCINATIONS Manic Symptoms: NONE REPORTED Living situation: WAS LIVING AT [facility] Illicit Drug usec: NONE REPORTED Alcoholo use: NONE REPORTED Tobacco use: NONE REPORTED Anxity Symptoms: MODERATE ANXIETY LEVEL Anger/Irritablility: SOME ANGER AND IRRITABILITY Muscle Strength & Tone: WNL Gait & Station: Ataxic Appearance: Well groomed/hygience, Casual attire, Normal weight, Appears age stated Attitude & Behaviour: Uncooperative, Poor eye contact, Psychomotor agitation Mood & Affect: Euthymic/appr/congruent, Iabile, Angry Orientation: Disoriented to place, Disoriented to time, Disoriented to situation Attention/Concentration: Poor attention, Poor concentration Speech: Reg rate/vol/rhyth/prosod Judgement/Insight: Poor judgement, Poor insight Thought Process: Loose, Tangential Language: Maldivian Thought content/Abnormal/Psych: Delusions Fund of Knowledge: Other Associations: WILMER Memory (recent and remote): Recent memory repaired, Remote memory repaired Constitutional: None Neurological: None Psychiatric: Depressed, Anxious, Psychosis [place] I: DELUSIONAL DISORDER; DEMENTIA; DEPRESSION; ANXIETY, PSYCHOSIS [place] II: DEFERRED [place] III: REFER TO PMH/MEDICAL CHART [place] IV: STRESS OF MENTAL ILLNESS [place] V: GAF=25 Assessment/Plan Assessment/Plan Assessment/Plan Vital Signs Date Time Temp Pulse Resp B/P (MAP) Pulse Ox O2 Delivery O2 Flow Rate FiO2 11/09/17 07:49 98.0 57 18 143/62 (89) 95 Room Air Allergies Coded Allergies NSAIDS (Non-Steroidal Anti-Inflamma (Verified Allergy, Unknown, 10/26/17) I & O 10/25/17 19:40 Thru 11/09/17 08:12 Intake Total 54759 ml Balance 84819 ml Current Medications Medications (Trade) Dose Ordered Sig/Maria Isabel Route Start Time Stop Time Status Last Admin Dose Admin Risperidone (Risperdal) 1 mg BID PO 11/08/17 21:00 12/08/17 20:59 11/09/17 08:12 1 MG THE PATIENT WAS SEEN VIA TELEMEDICINE EQUIPMENT (VSEE) ALONG WITH THE TREATMENT TEAM. THE PATIENT SLEPT 6.25 HOURS LAST NIGHT. THE PATIENT HAD HIS RISPERDAL INCREASED TO 1MG PO BID YESTERDAY. THE PATIENT STRUGGLES WITH CONFUSION. THE PATIENT HAS DELUSIONAL THINKING RELATED TO HIS DEMENTIA. THE PATIENT HAS NOT BEEN EATING VERY WELL. HE MISSES MEALS SOMETIMES. HE DID EAT BREAKFAST THIS MORNING. THE PATIENT IS NOT ABLE TO ANSWER QUESTIONS VERY WELL. THE PATIENT HAS BEEN DRINKING BOOST SHAKES. THE PATIENT REQUIRES REDIRECTION FROM STAFF. THE PATIENT HAS LIMITED SOCIAL SUPPORT FROM FAMILY. THE PATIENT IS NOT OVERSEDATED FROM HIS MEDICATIONS. THE PATIENT HAS HICCUPS THIS MORNING. ASSESSMENT: DELUSIONAL DISORDER, PSYCHOSIS, MAJOR DEPRESSIVE DISORDER, GENERALIZED ANXIETY DISORDER PLAN: 1) CONTINUE BEHAVIORAL HEALTH MANAGEMENT. 2) CONTINUE CURRENT MEDICATIONS. STAFF AGREEABLE WITH THE PLAN. SUPPORTIVE THERAPY GIVEN. THE PATIENT DENIES SI OR HI. SAFETY PLANS WERE DISCUSSED. 16 MINUTES SPENT IN SUPPORTIVE THERAPY AND MEDICATION EDUCATIONS. DISCHARGE PLANNING DISCUSSED WELL. Problems: (1) Dementia with aggressive behavior Status: Acute ICD Code: F03.91 - Unspecified dementia with behavioral disturbance SNOMED: [id number], [id number], [id number] PUJA LORENZO IV, MD November 09, 2017 08:39
--- NOTE | 2017-11-09 15:47 | NUR ---
PIRP: P: ALTERED THOUGHT PROCESS. DTO. I: Provide medications as ordered by physician. Encourage attendance and participation of all groups. Assist patient in differentiating between internal and external reality. Monitor patient for changes in usual behavior that may indicate risk of injury to others. R: Patient has taken all medications as ordered. He has participated in a few groups but retreats back to his room getting in bed. He is confused and could not comprehend what his blankets were. He has shown restless behavior getting in and out of bed and asking for help. No aggressive behavior this shift. P: Continue current plan of care. Risperdone 1 mg po BID.
[2017-11-09 19:45] VITALS: BP 157/70
[2017-11-09] MEDS: ZOCOR PO SCH (20:31)
[2017-11-09] MEDS: PLAVIX PO SCH (20:31)
[2017-11-09] MEDS: ARICEPT PO SCH (20:31)
--- NOTE | 2017-11-09 22:10 | NUR ---
Behaviors pt cont. to come out of room to desk attempts to come behind desk has been redirected to room several times is very anxious and cont to require redirection pt received Ativan 0.5mg po at this time will cont to monitor pt's behavior
[2017-11-09] MEDS: ATIVAN PO PRN (22:13)
--- NOTE | 2017-11-10 03:25 | NUR ---
PIRP P-RISK FOR FALLS, SLEEP PATTERN DISTURBANCE I- ADMINISTER MEDS PRESCRIBED, ENCOURAGE PT TO PARTICIPATE IN GROUP SESSIONS, MONITOR EVERY 15 MINUTES FOR SAFETY. R- PT GETTING OUT OF BED OFTEN, UNABLE TO DETERMINE IF IT WAS NIGHT OR DAYTIME UNTIL LOOKING OUT OF THE WINDOW. SWUNG ARM AT NURSE AND YELLED WHEN ATTEMPT MADE TO ESCORT BACK TO BED. UNSTEADY GAIT WITH AMBULATION. PT STAYING IN ROOM DURING PM SNACKTIME. P-CONTINUE TO ENCOURAGE PT TO PARTICIPATE IN GROUP/1:1 SESSIONS. CONTINUE WITH CAREPLAN.
[2017-11-10] MEDS: SYNTHROID PO SCH (05:58)
[2017-11-10 08:54] VITALS: BP 112/60
[2017-11-10] MEDS: VITAMIN D PO SCH (09:00)
[2017-11-10] MEDS: RISPERDAL PO SCH ×2 (09:34→20:48)
[2017-11-10] MEDS: DITROPAN PO SCH ×2 (09:34→20:48)
[2017-11-10] MEDS: CELEXA PO SCH (09:34)
[2017-11-10] MEDS: FLOMAX PO SCH (09:34)
[2017-11-10] MEDS: ASPIRIN EC PO SCH (09:34)
--- NOTE | 2017-11-10 15:55 | NUR ---
Hiccups Dr. Ascencio and Dr. López notified of intractable hiccups since 11/05/17. Received orders from Dr. López for PRN Thorazine, see EMAR.
--- NOTE | 2017-11-10 17:55 | NUR ---
PIRP P: Confusion, withdrawn, poor appetite, fall risk I: Monitor for changes in usual behavior, q15 min monitoring, assess for hallucinations and delusions, assess reasons for irritability, give clear and simple instructions, redirect with verbalization, re-orient to surroundings, provide reality orientation, provide 1:1 to encourage expression of feelings, provide task-oriented activities, teach alternating rest/activity, teach importance of adequate PO food and fluid intake, encourage social interaction, implement fall prevention techniques, teach use of side rails and standby assist, establish toileting schedule R: Pt has had flat, withdrawn affect majority of shift. Denies depression, anxiety, SI/HI. Has not exhibited threatening or combative behaviors, interacts appropriately when approached by staff. Requires encouragement of oral intake, denies having poor appetite. Alert and oriented to self. Takes medications as ordered, able to follow simple commands. P: Pt unable to verbalize plan.
[2017-11-10 19:20] VITALS: BP 147/75
[2017-11-10] MEDS: PLAVIX PO SCH (20:48)
[2017-11-10] MEDS: ARICEPT PO SCH (20:48)
[2017-11-10] MEDS: ZOCOR PO SCH (20:48)
[2017-11-10] MEDS: THORAZINE PO PRN (22:01)
[2017-11-11] MEDS: SYNTHROID PO SCH (05:57)
--- NOTE | 2017-11-11 06:12 | NUR ---
PIRP P Danger to others, Dementia with behaviors, Altered thought process, Risk for falls, sleep pattern disturbance I Patient to maintain medication compliance, Assaultive behavior to be discouraged and deflected. Patient to be observed every 15 minutes and more often as needed. Patient to maintain continence at night. Patient to sleep during night so that he can attend day groups. R Patient has maintained medication compliance. Patient has not displayed any assaultive behavior this night. Patient has been observed every 15 minutes and has done well throughout night. Patient has been incontinent of urine once tonight. Patient changed into clean gown and clean sheets put on bed. Patient has slept 6 hours tonight. P Continue plan of care
[2017-11-11 08:05] VITALS: BP 137/87
[2017-11-11] MEDS: DITROPAN PO SCH ×2 (08:33→20:22)
[2017-11-11] MEDS: ASPIRIN EC PO SCH (08:33)
[2017-11-11] MEDS: CELEXA PO SCH (08:33)
[2017-11-11] MEDS: RISPERDAL PO SCH ×2 (08:33→20:22)
[2017-11-11] MEDS: FLOMAX PO SCH (08:34)
[2017-11-11] MEDS: VITAMIN D PO SCH (08:34)
--- NOTE | 2017-11-11 17:35 | NUR ---
PIRP P: Confusion, withdrawn, fall risk I: Monitor for changes in usual behavior, q15 min monitoring, give yellow no-slip socks, enforce use of side rails with ambulation, give clear and simple instructions, redirect with verbalization, assess for hallucinations and delusions, give medications as ordered, alternate rest/activity, encourage social interaction, provide safe and supportive environment, provide 1:1 to encourage expression of feelings, provide task-oriented activities, teach side effects of medications, reinforce unit rules R: Pt has had flat, withdrawn affect majority of shift. In and out of sleep in day room and own pt room. Pt denies feelings of low energy, reports he is having "no trouble" with his medications. Alert and oriented to self, interacts appropriately when approached by staff and peers. Pt has not participated in group activities, but has sat in day room and watched others participate or watches TV during group activities. Has not exhibited threatening or combative behavior. Denies depression, anxiety, SI/HI. No hallucinations or delusions noted. States, "I'd say I'm generally happy." P: Plans for pt to discharge back to [facility], no date set @ this time.
[2017-11-11 19:51] VITALS: BP 149/68
[2017-11-11] MEDS: ARICEPT PO SCH (20:22)
[2017-11-11] MEDS: ZOCOR PO SCH (20:23)
[2017-11-11] MEDS: PLAVIX PO SCH (20:23)
--- NOTE | 2017-11-12 04:08 | NUR ---
PIRP- P- ALTERED THOUGHT PROCESS,DTO,ALTERED SLEEP PATTERN,RISK FOR FALLS I PROVIDE SAFE AND SUPPORTIVE ENVIRONMENT,1:1 INTERVENTION ALLOWING PT. TO EXPRESS THOUGHTS AND FEELINGS,Q 15 MIN. MONITORING AND PROVIDE MEDICATION ORDERED. R- PT. IN DAY ROOM WITH PEERS FOLLOWING SHIFT REPORT. ORIENTED TO NAME AND MONTH NOT YEAR. DENIES DEPRESSION AND ANXIETY. EXHIBITED PLEASANT AFFECT THIS SHIFT. ATTENDED GROUP AND PARTICIPATED IN ACTIVITIES. QUIET BUT RESPONDS TO APPROACH. TOOK MEDICATION ORDERED. REMAINS RISK FOR FALLS . PT. IS WEARING YELLOW NONE SKID SOCKS THIS SHIFT. HAS RESTED WITH EYES CLOSED IN BED FOR 3 HOURS OF THIS TIME. WANDERS IN HIS ROOM AT TIMES. P- WILL CONTINUE WITH CURRENT TX. PLAN.
[2017-11-12] MEDS: SYNTHROID PO SCH (06:14)
[2017-11-12 08:10] VITALS: BP 141/78
[2017-11-12] MEDS: RISPERDAL PO SCH ×2 (08:32→20:34)
[2017-11-12] MEDS: ASPIRIN EC PO SCH (08:32)
[2017-11-12] MEDS: DITROPAN PO SCH ×2 (08:32→20:34)
[2017-11-12] MEDS: CELEXA PO SCH (08:32)
[2017-11-12] MEDS: VITAMIN D PO SCH (08:32)
[2017-11-12] MEDS: FLOMAX PO SCH (08:32)
[2017-11-12] MEDS: THORAZINE PO PRN (09:42)
--- NOTE | 2017-11-12 09:44 | NUR ---
HICCUPS PT GIVEN THORAZINE 25MG PO FOR HIS HICCUPS. PT IS SITTING IN THE DAY ROOM HICCUPING. WILL CONTINUE TO MONITOR PT.
--- NOTE | 2017-11-12 10:00 | NUR ---
VSEE Pt was seen by Dr. López via telemedicine. No new orders received, plans for pt to discharge to [facility] on 11/14/17.
--- NOTE | 2017-11-12 10:02 | PRM.PN ---
Mood: UP AND DOWN, MOOD HAS IMPROVED FROM ADMISSION Sleep: SLEEPING OK AT NIGHT, TAKES DAY TIME NAPS Appetite: NORMAL APPETITE, DRINKING WELL Suidical thoughts: NONE REPORTED Homicidal thoughts: NONE REPORTED Recent stressors: STRESS OF MENTAL ILLNESS Family support: DAUGHTERS, LIMITED OTHERWISE Aggressive Behavior: LIMITED AGGRESSIVE BEHAVIOR, BEHAVIOR HAS IMPROVED WITH MEDICATIONS Ability to Perform ADL'sc: NEEDS SOME ASSISTANCE Psychotic sympstoms: DELUSIONAL THINKING, DENIES PARANOIA AND HALLUCINATIONS Manic Symptoms: NONE REPORTED Living situation: LIVING AT [facility] Illicit Drug usec: NONE REPORTED Alcoholo use: NONE REPORTED Tobacco use: NONE REPORTED Anxity Symptoms: MODERATE ANXIETY LEVEL Anger/Irritablility: LIMITED ANGER AND IRRITABILITY (HAS SHOWN IMPROVEMENT) Muscle Strength & Tone: WNL Gait & Station: Ataxic Appearance: Well groomed/hygience, Casual attire, Normal weight, Appears age stated Attitude & Behaviour: Cooperative/Pleasant, Good eye contact Mood & Affect: Euthymic/appr/congruent, Iabile Orientation: Disoriented to place, Disoriented to situation Attention/Concentration: Fair attention, Fair concentration Speech: Reg rate/vol/rhyth/prosod Judgement/Insight: Poor judgement, Poor insight Thought Process: Linear/goal directed, Loose, Tangential Language: Thai Thought content/Abnormal/Psych: Delusions Fund of Knowledge: WNL Associations: WNL/Normal Associations Memory (recent and remote): Recent memory repaired, Remote memory repaired Constitutional: None Neurological: None Psychiatric: Depressed, Anxious, Psychosis [place] I: DELUSIONAL DISORDER, DEMENTIA, DEPRESSION, ANXIETY, PSYCHOSIS [place] II: DEFERRED [place] III: REFER TO PMH/MEDICAL CHART [place] IV: STRESS OF MENTAL ILLNESS [place] V: GAF=30 Assessment/Plan Assessment/Plan Assessment/Plan Vital Signs Date Time Temp Pulse Resp B/P (MAP) Pulse Ox O2 Delivery O2 Flow Rate FiO2 11/12/17 08:10 97.1 73 16 141/78 (99) 97 Room Air Allergies Coded Allergies NSAIDS (Non-Steroidal Anti-Inflamma (Verified Allergy, Unknown, 10/26/17) I & O 10/25/17 19:40 Thru 11/12/17 08:28 Intake Total 08492 ml Balance 47676 ml THE PATIENT WAS SEEN BY DR. LORENZO VIA TELEMEDICINE EQUIPMENT (VSEE) ALONG WITH THE TREATMENT TEAM. THE PATIENT SLEPT 4.75 HOURS LAST NIGHT. THE PATIENT NAPS A LOT DURING THE DAY. THE PATIENT HAS BEEN EATING AND DRINKING WELL PER STAFF. THE PATIENT CONTINUES TO BE CONFUSED. HE IS PROBABLY CLOSE TO HIS BASELINE. THE PATIENT HAS A SHORT TERM MEMORY. THE PATIENT CAN GET IRRITABLE EASILY WHICH IS SIMILAR TO HIS BEHAVIOR BEFORE GETTING DEMENTIA PER HIS FAMILY. THE PATIENT STAYS IN HIS ROOM A LOT. THE PATIENT IS NOT HAVING AUDITORY OR VISUAL HALLUCINATIONS PER STAFF. THE PATIENT HAS DELUSIONAL THINKING RELATED TO HIS DEMENTIA THAT HAS IMPROVED. THE PATIENT IS NOT OVER-SEDATED FROM HIS MEDICATIONS. THE PATIENT IS ABLE TO AMBULATE. THE PATIENT HAS BEEN RECEIVING THORAZINE FOR HICCUPS. THE PATIENT WAS ABLE TO STATE HIS NAME. THE PATIENT REPORTED THAT HE IS NOT THE HOSPITAL. THE PATIENT DID NOT KNOW WHAT HOSPITAL HE WAS IN. HE KNEW HE WAS IN THE HOSPITAL [facility]. THE PATIENT KNEW IT WAS NOVEMBER 12, 2017. THE PATIENT DENIES FEELING DEPRESSED TODAY. ASSESSMENT: DELUSIONAL DISORDER, PSYCHOSIS, DEMENTIA WITH BEHAVIOR PROBLEMS PLAN: 1) CONTINUE BEHAVIORAL HEALTH MANAGEMENT. PLAN TO DISCHARGE ON MONDAY, October. 2) CONTINUE CURRENT MEDICATIONS. STAFF AGREEABLE WITH THE PLAN. SUPPORTIVE THERAPY GIVEN. THE PATIENT DENIES SI OR HI. 16 MINUTES WAS SPENT IN SUPPORTIVE THERAPY AND MEDICATION EDUCATION. ALSO INSIGHT ORIENTED THERAPY ABOUT HIS BEHAVIORS. Problems: (1) Dementia with aggressive behavior Status: Resolved ICD Code: F03.91 - Unspecified dementia with behavioral disturbance SNOMED: [id number], [id number], [id number] PUJA LORENZO IV, MD November 12, 2017 10:02
[2017-11-12] MEDS ORDERED: RISP1TAB45 PO (10:13)
[2017-11-12] MEDS ORDERED: CHLO25TA4 PO (10:13)
[2017-11-12] MEDS ORDERED: CITA10TA8 PO (10:13)
[2017-11-12] MEDS ORDERED: DONE5TAB53 PO (10:13)
--- NOTE | 2017-11-12 17:37 | NUR ---
PIRP P: Withdrawn, irritable, confused I: Q15 min monitoring, monitor for changes in usual behavior, give clear and simple instructions, redirect with verbalization, re-orient to surroundings as needed, give medications as ordered, provide task-oriented activities, alternate rest/activity, teach unit activities, encourage social interaction, assess reasons for irritability, provide positive feedback on appropriate behavior R: Pt has had withdrawn affect majority of shift. Irritable @ times, but is able to be redirected with verbalization. Denies depression, anxiety, SI/HI. States, "I'm doing just fine." Pt is alert and oriented to self, able to be redirected with verbalization. Pt reports that he gets "frustrated about small things that probably wouldn't bother others." Able to report that he is on unit for psychiatric care, but is unable to elaborate. Has not participated in group activities, but will sit in day room and interact with peers if approached. Isolates to room @ times. has not exhibited threatening behaviors, takes medications as ordered. P: Plans for pt to discharge back to [facility] on 11/14/17.
[2017-11-12 19:35] VITALS: BP 152/84
[2017-11-12] MEDS: PLAVIX PO SCH (20:34)
[2017-11-12] MEDS: ZOCOR PO SCH (20:34)
[2017-11-12] MEDS: ARICEPT PO SCH (20:34)
--- NOTE | 2017-11-13 03:35 | NUR ---
PIRP P-ALTERED THOUGHT PROCESS,DTO AND RISK FOR FALLS I- PROVIDE MEDICATION ORDERED,Q 15 MIN. MONITORING,PROVIDE SAFE AND SUPPORTIVE ENVIRONMENT AND PROVIDE 1:1 INTERVENTION ALLOWING PT. TO EXPRESS THOUGHTS AND FEELINGS. R- PT. WAS ORIENTED TO NAME NOT OR YEAR. DENIES DEPRESSION AND ANXIETY. ATTENDED GROUP AND COLORED PART OF A PICTURE. PLEASANT AFFECT. QUIET BUT RESPONDS TO APPROACH. TOOK MEDICATION ORDERED. CONTINUES TO BE FALL RISK AND STAFF WALKS WITH PT. AT TIMES. PT. WEARING YELLOW NON SKID SOCKS. AFTER PT. WENT TO BED HE REPEATEDLY GOT UP FROM BED ,CAME TO THE NURSE'S DESK ,TOLD NURSES HE WAS GOING TO BED THEN HE WOULD GO TO BED AND REPEAT THE SAME THINGS . P- WILL CONTINUE WITH CURRENT TX. PLAN.
[2017-11-13] MEDS: SYNTHROID PO SCH (05:47)
[2017-11-13] MEDS: CELEXA PO SCH (07:29)
[2017-11-13] MEDS: DITROPAN PO SCH ×2 (07:29→20:49)
[2017-11-13] MEDS: ASPIRIN EC PO SCH (07:29)
[2017-11-13] MEDS: FLOMAX PO SCH (07:29)
[2017-11-13] MEDS: RISPERDAL PO SCH ×2 (07:29→20:49)
[2017-11-13] MEDS: VITAMIN D PO SCH (07:30)
[2017-11-13 08:18] VITALS: BP 157/86
--- NOTE | 2017-11-13 11:32 | NUR ---
FAMILY UPDATE: SS CALLED AND VISITED WITH PT'S ARMANDO FRANCISCO REGARDING PT'S UPCOMING DISCHARGE. SS NOTIFIED PT'S DAUGHTER THAT GOAL WAS FOR [facility] TO TOLL TESTBOARD WORKER PT TOMORROW ON 11/14/17 AT 1400. PT'S DAUGHTER STATED " I APPRECIATE EVERYTHING THAT WAS DONE FOR MY FATHER AND AM GLAD HE IS DOING BETTER AND ABLE TO GO BACK TO THE CUSTODIAL". NO FURTHER SS NEEDS NOTED AT THIS TIME.
--- NOTE | 2017-11-13 14:52 | NUR ---
DISCHARGE PLANNING: SS REACHED OUT TO [facility] REGARDING PT'S UPCOMING DISCHARGE. UPDATED CLINICAL FAXED OVER TO [facility] AND STATED THEY WOULD PICK PT UP TOMORROW 11/14/17 AT 1400.
--- NOTE | 2017-11-13 16:16 | NUR ---
PIRP: P: altered thought process I: Provide medications ordered by physician. Encourage attendance and participation of all groups. Provide groups that require focus and concentration. Assist patient in differentiating between internal and external reality. R: Patient has taken all medications as ordered and has participated in all groups. He has become restless in the afternoon getting in and out of bed but is easily redirected. P: COntinue current plan of care. Discharge back to shelter tomorrow.
[2017-11-13] MEDS: THORAZINE PO PRN (17:44)
[2017-11-13 19:30] VITALS: BP 153/75
[2017-11-13] MEDS: ARICEPT PO SCH (20:49)
[2017-11-13] MEDS: ZOCOR PO SCH (20:49)
[2017-11-13] MEDS: PLAVIX PO SCH (20:49)
--- NOTE | 2017-11-14 04:55 | NUR ---
PIRP P Danger to others, Dementia with behaviors, Altered thought process, Risk for falls ,Sleep pattern disturbance I Maintain medication compliance. Monitor every 15 minutes for safety. Encourage restful sleep. Observe for unusual behavior. Discourage disruptive behavior R .Patient has maintained medication compliance. Patient has been monitored every 15 minutes for safety. Patient has slept well this evening. Has not been up walking to desk as previously has. Patient has not displayed any unusual behavior or disruptive behavior. Patient has been calm and pleasant. P Continue plan of care.
[2017-11-14] MEDS: SYNTHROID PO SCH (06:28)
[2017-11-14] MEDS: DITROPAN PO SCH (07:50)
[2017-11-14] MEDS: ASPIRIN EC PO SCH (07:50)
[2017-11-14] MEDS: RISPERDAL PO SCH (07:50)
[2017-11-14] MEDS: VITAMIN D PO SCH (07:50)
[2017-11-14] MEDS: CELEXA PO SCH (07:51)
[2017-11-14] MEDS: FLOMAX PO SCH (07:51)
[2017-11-14 08:10] VITALS: BP 148/81
[2017-11-14 16:48] VITALS: BP 148/81
--- NOTE | 2017-11-14 17:05 | NUR ---
Report Report given to Michaela EPPERSON at [facility] in [facility]
--- NOTE | 2017-11-14 18:55 | DSH ---
DATE OF DISCHARGE: 11/14/2017 HOSPITAL COURSE: The patient is a male who was an involuntary admission to the [facility] for behavior problems and delusional thinking. The patient was aggressive at the [facility] that he was living at. The patient was stabilized on the following psychotropic medications: Citalopram 10 mg p.o. daily, Aricept 10 mg p.o. at bedtime, Risperdal 1 mg p.o. b.i.d. The patient was also being given Thorazine 25 mg every 8 hours as needed for intractable hiccups. The patient does have severe dementia. He was oriented to person only. He was disoriented to place, time, and situation most of the time. He did show some improvement in cognition. He did show some improvement when taking advice from staff about trying to calm down and work on coping skills and I get angry so easily. The patient was sleeping and eating well. He was taking his medications. He was tolerating his medications well and not over sedated from his medications. He was not a threat to harming himself or others when he was discharged. He had minimal delusional thinking. He was not having auditory or visual hallucinations. He was not having aggressive behavior. He required a very few p.r.n. medications. DISCHARGE DIAGNOSES: Delusional disorder; major depressive disorder; generalized anxiety disorder; dementia with behavior disturbance. DISCHARGE PLAN: 1. The patient is being discharged in a stable condition to the [facility]. 2. The patient will continue the above psychotropic medications at current doses. 3. The patient is to follow up with outpatient psychiatry and outpatient counseling if necessary to help with coping skills. Kendra López IV MD DR: /princess JOB# [id number]
== END 2017-11-14 16:48 | DRG 885 ==
LOC: ER 14:22 → GP 18:27 → EEVIPCON 18:27 → EDPENDDISDT 11-14 → EDPENDDISTM 11-14
PROVIDERS: ADMIT Psychiatry & Neurology Psychiatry; ATTEND Psychiatry & Neurology Psychiatry
DX: F32.3 Major depressive disorder, single episode, severe with psychotic features (principal); F02.81 Dementia in other diseases classified elsewhere, unspecified severity, with behavioral disturbance; E43 Unspecified severe protein-calorie malnutrition; N18.3 Chronic kidney disease, stage 3 (moderate); G30.9 Alzheimer's disease, unspecified; D63.8 Anemia in other chronic diseases classified elsewhere; E78.00 Pure hypercholesterolemia, unspecified; E03.9 Hypothyroidism, unspecified; F41.1 Generalized anxiety disorder; E78.5 Hyperlipidemia, unspecified; I12.9 Hypertensive chronic kidney disease with stage 1 through stage 4 chronic kidney disease, or unspecified chronic kidney disease; N40.0 Benign prostatic hyperplasia without lower urinary tract symptoms; I25.10 Atherosclerotic heart disease of native coronary artery without angina pectoris; M19.90 Unspecified osteoarthritis, unspecified site; Z88.6 Allergy status to analgesic agent; Z79.899 Other long term (current) drug therapy; Z86.73 Personal history of transient ischemic attack (TIA), and cerebral infarction without residual deficits; Z88.8 Allergy status to other drugs, medicaments and biological substances
CPT/HCPCS: 36415; 71046; 80053; 80061; 80164; 80307; 81002; 82550; 82553; 82607; 82746; 82803; 83036; 83880; 84443; 84484; 85025; 85610; 85730; 86140; 93005; 97150; 97166; 99285; Q0161; G8987; G8988